=== PATIENT | male | born 1995 | race Caucasian/White ===

== ENCOUNTER 2023-05-10 01:14 | Emergency (ER) | payer BC, SELFPAY ==
[2023-05-10 01:22] VITALS: BP 139/83; PULSE 116; RESP 20; TEMP 37.4; O2SAT 96
--- NOTE | 2023-05-10 02:15 | ED.GENADULT ---
HPI - General Adult General Chief complaint: Skin/Abscess/Foreign Body Stated complaint: cellulitis L leg Time Seen by Provider: 05/10/23 01:18 History of Present Illness HPI narrative: pt has hx of cellulitis to left leg, unknown reason. Pt was at [facility] today, after fair, left leg began to well. Pt, has no pain to leg. pt reports fever/chills/ nausea. No CP, pt does report 2/10 for SOB. PT attempted to elevate leg at home, did not work. Pt reports normally being put on oral antibiotics for this. 27-year-old young man here with significant other with concern of potential infection to his left leg. He has been on his feet today at [facility] and his left leg has started to swell. Is not having pain. Has felt a little chilled and nauseated maybe warm as well. No shortness of breath. Did have a period of elevation of his leg though does not sound as though at heart level. Has needed antibiotics for spontaneous cellulitis apparently in the past. No trauma. Has had recurrences of this in the past. Has had ultrasounds as well with out findings of DVT Related Data Previous Rx's Medication Instructions Recorded cephalexin 500 mg capsule 500 mg PO TID 8 days #24 caps 05/10/23 Allergies Allergy/AdvReac Type Severity Reaction Status Date / Time No Known Drug Allergies Allergy Verified 05/10/23 01:21 Review of Systems Status of ROS: Reports: 6 or more systems reviewed and unremarkable except as noted in History and below [facility] Medical History Cellulitis of left leg ?L03.116 - Cellulitis of left lower limb (ICD-10) Surgical History (Updated 05/10/23 @ 01:47 by Misael Garcias RN) No significant past surgical history 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 Smoking Status: Never smoker Second hand tobacco smoke exposure: No How often do you have a drink containing alcohol: never How often do you have six or more drinks on one occasion: Never AUDIT-C Alcohol total score: 0 Non-prescribed substance use: denies use Exam Narrative: Exam Narrative: Pleasant large man a NAD. Examination of the extremities in question show generally large lower legs. Left a little more so than the left than the right. Mild calor and faint erythema a blotchy over the left lower extremity. Is well perfused. No discrete pain to palpation of the calf or with Homans. Breathing easily. Lungs appear to be clear. Heart is however in an elevated to tachycardic rate in a regular rhythm. Const: Vital Signs, click to edit/add: Vital Signs - 24 hr 05/10/23 01:22 Temperature 99.3 F Pulse Rate [Left P ulse Oximeter] 116 H Respiratory Rate 20 Blood Pressure [Ri ght Upper Arm] 139/83 Pulse Oximetry 96 Oxygen Delivery Me thod Room Air Documenting provider has reviewed patient's vital signs: yes Course Vital Signs Vital signs: Initial Vital Signs Temperature 99.3 F 05/10/23 01:22 Temperature Source Temporal Artery Scan 05/10/23 01:22 Pulse Rate 116 H 05/10/23 01:22 Pulse Rhythm Regular 05/10/23 01:22 Respiratory Rate 20 05/10/23 01:22 Blood Pressure 139/83 05/10/23 01:22 Blood Pressure Mean 101 05/10/23 01:22 Blood Pressure Position Sitting 05/10/23 01:22 Pulse Oximetry 96 05/10/23 01:22 Oxygen Delivery Method Room Air 05/10/23 01:22 Vital Signs Temperature 99.3 F 05/10/23 01:22 Pulse Rate 116 H 05/10/23 01:22 Respiratory Rate 20 05/10/23 01:22 Blood Pressure 139/83 05/10/23 01:22 Pulse Oximetry 96 05/10/23 01:22 Oxygen Delivery Method Room Air 05/10/23 01:22 Temperature 98.5 F 05/10/23 03:57 Pulse Rate 99 05/10/23 03:57 Respiratory Rate 20 05/10/23 03:57 Blood Pressure 135/74 05/10/23 03:57 Pulse Oximetry 96 05/10/23 03:00 Oxygen Delivery Method Room Air 05/10/23 03:00 Medical Decision Making MDM Narrative Medical decision making narrative: Noting vitals do have concern for infection here. Temperature is little bit elevated he is afebrile though. Would treat for cellulitis. Will check labs for further concerned. Given size/stature do have some concerns for chronic lymphedema and clearly this being a recurrent problem. Vascular clinic consult I think would be helpful. White count is elevated. Given g of Rocephin. CRP mildly elevated. I placed Kevin wraps over lower extremity. See patient discharge plan Lab Data Lab results reviewed: Yes I reviewed the patient's lab results Labs: Lab Results 05/10/23 Range/Units 02:18 WBC 13.67 H (4.50-11.00) K/uL RBC 5.38 (4.30-5.90) m/uL Hgb 15.1 (13.5-17.5) gm/dL Hct 45.9 (37.0-53.0) % MCV 85 (80-100) fL MCH 28 (26-34) pg MCHC 33 (32-36) gm/dL RDW Coeff of Barber 12.3 (11.5-15.5) % Plt Count 256 (140-440) K/uL Neut % (Auto) 80.3 H (42.0-72.0) % Lymph % (Auto) 10.5 L (20-44) % [place] % (Auto) 6.9 (0.0-11.0) % Eos % (Auto) 1.8 (0.0-7.0) % Baso % (Auto) 0.2 (0.0-3.0) % Neut # (Auto) 11.00 H (1.7-7.0) K/uL Lymph # (Auto) 1.40 (0.90-2.90) K/uL [place] # (Auto) 0.90 (0.00-0.90) K/UL Eos # (Auto) 0.20 (0.00-0.50) K/uL Baso # (Auto) 0.00 (0.00-0.30) K/uL Abs Immat Gran (auto) 0.00 (0.00-0.30) K/uL Imm/Tot Granulo (auto) 0.3 % Sodium 138 (135-149) mmol/L Potassium 4.2 (3.6-5.1) mmol/L Chloride 103 (96-114) mmol/L Carbon Dioxide 28 (20-32) mmol/L BUN 17 (5-24) mg/dL Creatinine 1.0 (0.5-1.5) mg/dL Estimated GFR 106 ml/min Glucose 105 (60-115) mg/dL Calcium 9.0 (8.4-10.6) mg/dL C-Reactive Protein 1.2 H (0.5-1.0) mg/dL Discharge Plan Discharge Clinical Impression: Cellulitis, Peripheral edema Condition: Stable Additional Instructions: Stay well-hydrated. For now wear this compression word at rest and even when up and about to help mobilize fluid. At rest also get your leg way up as discussed at the level of your heart or above if possible. I do think you should spend the next 2-3 days with your leg up as much as possible and not walking around. I think it might benefit for you to see a vascular clinic about your legs. To coordinate this would likely be helpful to establish primary care locally. Try to get your prior records as well to continue cares. <del>Continue</del> <del>treatment</del> <del>with</del> <del>course</del> <del>of</del> <del>cephalexin</del> <del>from</del> <del>[facility]del> A prescription will be sent in for you for cephalexin. The Rocephin should cover you until you get to the pharmacy. You can start next dosing of antibiotic this mid afternoon. Prescriptions: New cephalexin 500 mg capsule 500 mg PO TID 8 Days Qty: 24 0RF Follow Up/Referrals: Provider,Not a Local [Primary Care Provider] - Stand Alone Forms: MyHealth Info Instructions
[2023-05-10 02:30] LABS: Basophils Percent Auto 0.2 % (0.0-3.0); Eosinophils Percent Auto 1.8 % (0.0-7.0); Hematocrit 45.9 % (37.0-53.0); Hemoglobin* 15.1 gm/dL (13.5-17.5); Immature Granulocytes Pct Auto 0.3 %; Lymphocytes Percent Auto 10.5 % (20-44); Mean Corpuscular HGB Conc 33 gm/dL (32-36); Mean Corpuscular Hemoglobin 28 pg (26-34); Mean Corpuscular Volume 85 fL (80-100); Monocytes Percent Auto 6.9 % (0.0-11.0); Neutrophils Percent Auto 80.3 % (42.0-72.0); Platelet Count* 256 K/uL (140-440); RDW Coefficient of Variation % 12.3 % (11.5-15.5); Red Blood Count 5.38 m/uL (4.30-5.90); White Blood Count* 13.67 K/uL (4.50-11.00)
[2023-05-10 02:34] LABS: Slide Review Reflex No
[2023-05-10 02:38] LABS: Chloride* 103 mmol/L (96-114); Potassium* 4.2 mmol/L (3.6-5.1); Sodium* 138 mmol/L (135-149)
[2023-05-10 02:41] LABS: Estimated Glomerular Filt Rate 106 ml/min
[2023-05-10 02:42] LABS: Blood Urea Nitrogen* 17 mg/dL (5-24); Carbon Dioxide* 28 mmol/L (20-32); Glucose* 105 mg/dL (60-115)
[2023-05-10 02:45] LABS: C Reactive Protein* 1.2 mg/dL (0.5-1.0)
[2023-05-10 03:00] VITALS: BP 135/74; PULSE 99; RESP 20; TEMP 36.9; O2SAT 96
[2023-05-10] MEDS: cefTRIAXone 1 GM VIAL IM (03:46)
[2023-05-10] MEDS: LIDOCAINE 1% 5 ml (pf) 5 ML VIAL 2.1 ML IM (03:46)
[2023-05-10 03:57] VITALS: BP 135/74; PULSE 99; RESP 20; TEMP 36.9
== END 2023-05-10 03:57 | disposition home or self-care (01) ==
PROVIDERS: Emergency Provider Family Medicine
DX: L03.116 Cellulitis of left lower limb (principal); R60.9 Edema, unspecified
CPT/HCPCS: 36415; 80048; 85025; 86140; 96372; 99284; J0696

== ENCOUNTER 2023-06-03 20:05 | Emergency (ER) | payer BC, SELFPAY ==
[2023-06-03 20:23] VITALS: BP 152/84; PULSE 99; RESP 18; TEMP 36.7; O2SAT 99; BMI 46.2
--- NOTE | 2023-06-03 20:32 | ED.SKABFB ---
HPI - Skin/Abscess/Foreign Bdy General Time Seen by Provider: 20:32 Date Seen: 06/03/23 Chief complaint: Skin/Abscess/Foreign Body Stated complaint: Pain in leg Time Seen by Provider: 06/03/23 20:32 Source: patient and RN notes reviewed Mode of arrival: ambulatory Limitations: no limitations History of Present Illness HPI narrative: This 27-year-old male is coming in with left lower leg swelling and redness, increased pain. He noted Thursday night he started having fever and chills. His girlfriend gave him vitamin-C a couple times. When he woke up Thursday the fever was gone, just had a mild headache. Notes he will often feel like this before his leg will be infected with a cellulitis. He has had recurrent cellulitis in this leg. Was recently just treated here and seen on May 10, no reviewed. He did complete the Keflex. He has no history of MRSA. He thinks that the leg may be started to be symptomatic yesterday but really noted it today. When he got home today and took his boot off, had significant indentation in his left lower extremity wear the boot was resting. He has no chest pain or shortness of breath. He does not have a primary doctor. He and I reviewed that he really needs to see a specialist for this. He is giving me a history of recurrent cellulitis and swelling of this extremity, have reviewed with him that there can be chronic changes in he is far too young to ignore this. I highly advise that he be referred to specialty care and lymphedema clinic. He thinks his legs been ultrasounded for underlying DVT but maybe last time a few months ago, was not here. Related Data Home Medications Medication Instructions Recorded Confirmed No Known Home Medications 06/03/23 06/03/23 Allergies Allergy/AdvReac Type Severity Reaction Status Date / Time No Known Drug Allergies Allergy Verified 06/03/23 20:25 Review of Systems Narrative: As per HPI. PFSH PFSH Medical History Cellulitis of left leg ?L03.116 - Cellulitis of left lower limb (ICD-10) Surgical History No significant past surgical history 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 Smoking Status: Never smoker Second hand tobacco smoke exposure: No How often do you have a drink containing alcohol: never How often do you have six or more drinks on one occasion: Never AUDIT-C Alcohol total score: 0 Non-prescribed substance use: denies use Exam Const: Vital Signs, click to edit/add: Vital Signs - 24 hr 06/03/23 20:23 Temperature 98.1 F Pulse Rate [Right Pulse Oximeter] 99 Respiratory Rate 18 Blood Pressure [Ri ght Upper Arm] 152/84 H Pulse Oximetry 99 Oxygen Delivery Me thod Room Air This is a 27-year-old male that is alert, interactive, no apparent distress, ambulatory in the ED of his own accord. Very pleasant, normal speech. Obese 27-year-old male. Lungs are clear with good air entry, no wheezing or crackles. CV regular rate and rhythm, no murmur, normal S1 and S2. Abdomen is soft, nontender. His left lower extremity looks about 30% larger than his right. He has some thickened skin that is noted on this left lower extremity and also erythema that seems to be confluency around the ankle and the lower portion of the leg, erythema travels up posteriorly in the calf area. Also note an area of erythema that is above the knee medially on the thigh. I cannot say that he has a Homans but he has quite large extremities baseline, left is certainly much more swollen than the right. He states this happens quickly to him, feels like at baseline they are both closer to same size. Documenting provider has reviewed patient's vital signs: yes Course Course ED Course: Reviewed with patient that I really feel strongly that we should ultrasound this left lower extremity insure that there was no underlying DVT. If this is negative, plan is to discharge him with oral doxycycline and close outpatient follow-up. I have stressed to him that this needs to happen he needs to be referred to specialty care/lymphedema clinic. Reevaluation(s) Time of Reevaluation #1: 21:34 Reevaluation #1: Reviewed negative report for DVT by earth science laboratory technician with patient. Will plan to discharge to home on doxycycline 100mg bid for 10 days. Vital Signs Vital signs: Initial Vital Signs Temperature 98.1 F 06/03/23 20:23 Temperature Source Temporal Artery Scan 06/03/23 20:23 Pulse Rate 99 06/03/23 20:23 Respiratory Rate 18 06/03/23 20:23 Blood Pressure 152/84 H 06/03/23 20:23 Blood Pressure Mean 106 H 06/03/23 20:23 Blood Pressure Position Sitting 06/03/23 20:23 Pulse Oximetry 99 06/03/23 20:23 Oxygen Delivery Method Room Air 06/03/23 20:23 Vital Signs Temperature 98.1 F 06/03/23 20:23 Pulse Rate 99 06/03/23 20:23 Respiratory Rate 18 06/03/23 20:23 Blood Pressure 152/84 H 06/03/23 20:23 Pulse Oximetry 99 06/03/23 20:23 Oxygen Delivery Method Room Air 06/03/23 20:23 Temperature 98.1 F 06/03/23 20:23 Pulse Rate 99 06/03/23 20:23 Respiratory Rate 18 06/03/23 20:23 Blood Pressure 152/84 H 06/03/23 20:23 Pulse Oximetry 99 06/03/23 20:23 Oxygen Delivery Method Room Air 06/03/23 20:23 Critical Care Time Critical Care Time Critical Care Time: No Discharge Plan Discharge Clinical Impression: Cellulitis Patient Disposition: Home, Self-Care Condition: Stable Instructions: Cellulitis (ED), Leg Edema (ED) Additional Instructions: Start doxycycline and take as prescribed. You absolutely need to get scheduled for recheck in clinic within the next 3-5 days, sooner if issues. You really need to be referred to a lymphedema clinic given you have chronic recurrent infection in this leg. Your far too young and this could become very problematic for you. You need to get control of the swelling of this leg and have further evaluation done. Recommend elevating and Kevin wrapping this leg as much as you are able to until the infection is improving. Activity Level: Activity as Tolerated Prescriptions: No Action No Known Home Medications Follow Up/Referrals: Provider,Not a Local [Primary Care Provider] - Stand Alone Forms: MyHealth Info Instructions
--- NOTE | 2023-06-03 20:39 | CRLHL7_ITS ---
For Patients: As a result of the Century Cures Act, medical imaging exams and procedure reports are released immediately into your electronic medical record. You may view this report before your referring provider. If you have questions, please contact your health care provider. HISTORY: Swelling, redness and pain. TECHNIQUE: Ultrasound of the left lower extremity deep veins using munguia-scale, color Doppler, and spectral Doppler. COMPARISON: None. FINDINGS: Left: Common femoral, femoral, and popliteal veins are patent and compressible with normal response to augmentation. Deep femoral vein is patent and compressible. Posterior tibial and peroneal veins are patent and compressible with normal response to augmentation. Greater saphenous vein is patent and compressible at the junction with the femoral vein. - Right: Common femoral vein is patent and compressible with normal response to augmentation. IMPRESSION: No left lower extremity DVT. Dictated by Aura Tanner MD @ 06/03/2023 10:02:40 PM (Electronically Signed)
[2023-06-03 21:57] VITALS: BP 135/74; PULSE 86; RESP 18; TEMP 36.7; O2SAT 99
[2023-06-03] MEDS: DOXYCYCLINE HYCLATE 100 MG PO (21:57)
[2023-06-03 21:58] VITALS: BP 135/74; PULSE 86; RESP 18; TEMP 36.7
== END 2023-06-03 21:59 | disposition home or self-care (01) ==
PROVIDERS: Emergency Provider Family Medicine
DX: L03.116 Cellulitis of left lower limb (principal)
CPT/HCPCS: 93971; 99283; A9270

== ENCOUNTER 2023-12-20 14:52 | Emergency (ER) | payer BC, SELFPAY ==
[2023-12-20 15:00] VITALS: BP 150/88; PULSE 81; RESP 32; TEMP 36.1; O2SAT 94; BMI 47.5
--- NOTE | 2023-12-20 15:44 | ED_ITS ---
HPI - General Adult General Chief complaint: Skin/Abscess/Foreign Body Stated complaint: Infection L leg Time Seen by Provider: 12/20/23 14:58 History of Present Illness HPI narrative: araceli is a very pleasant 28-year-old male who has recurrent cellulitis in his left leg. He has had ultrasounds a couple of times, he has had 7 or 8 recurrences of cellulitic change in his left leg. His BMI is elevated. 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 He notices redness and he has felt a little chilled. He has benefited from doxycycline in the past. It has been recommended he see a chronic lymphedema specialist given he gets some increased swelling in his leg. He has had negative Dopplers he has never had a clot in his leg. He has no chest pain or shortness of breath today. Related Data Previous Rx's Medication Instructions Recorded doxycycline hyclate 100 mg capsule 100 mg PO BID #20 caps 12/20/23 Allergies Allergy/AdvReac Type Severity Reaction Status Date / Time No Known Drug Allergies Allergy Verified 06/03/23 20:25 Review of Systems Status of ROS: Reports: 6 or more systems reviewed and unremarkable except as noted in History and below [facility] Medical History Cellulitis of left leg ?L03.116 - Cellulitis of left lower limb (ICD-10) Surgical History No significant past surgical history 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 Smoking Status: Never smoker Do you use any of these nicotine containing products: Vaping Products Second hand tobacco smoke exposure: No How often do you have a drink containing alcohol: never How often do you have six or more drinks on one occasion: Never AUDIT-C Alcohol total score: 0 Non-prescribed substance use: denies use service: No Exam Narrative: Exam Narrative: Objective: Patient's vital signs look largely unremarkable he is afebrile His left leg shows calf swelling with redness and warmth some firmness to the skin, is got a little bit a cellulitic streaking in his medial thigh as well which she reports is fairly normal for him to have he has a negative Homans sign no palpable cords in the back of his leg although his leg is both his legs are large due to his general body size. Does not appear to have significant edema. Neurologic is nonfocal. Const: Vital Signs, click to edit/add: Vital Signs - 24 hr 12/20/23 15:00 Temperature 96.9 F L Pulse Rate [Pulse Oximeter] 81 Respiratory Rate 32 H Blood Pressure [Ri ght Upper Arm] 150/88 H Pulse Oximetry 94 Oxygen Delivery Me thod Room Air Course Vital Signs Vital signs: Initial Vital Signs Temperature 96.9 F L 12/20/23 15:00 Temperature Source Temporal Artery Scan 12/20/23 15:00 Pulse Rate 81 12/20/23 15:00 Pulse Rhythm Regular 12/20/23 15:00 Respiratory Rate 32 H 12/20/23 15:00 Blood Pressure 150/88 H 12/20/23 15:00 Blood Pressure Mean 108 H 12/20/23 15:00 Blood Pressure Position Supine 12/20/23 15:00 Pulse Oximetry 94 12/20/23 15:00 Oxygen Delivery Method Room Air 12/20/23 15:00 Vital Signs Temperature 96.9 F L 12/20/23 15:00 Pulse Rate 81 12/20/23 15:00 Respiratory Rate 32 H 12/20/23 15:00 Blood Pressure 150/88 H 12/20/23 15:00 Pulse Oximetry 94 12/20/23 15:00 Oxygen Delivery Method Room Air 12/20/23 15:00 Temperature 96.9 F L 12/20/23 15:00 Pulse Rate 81 12/20/23 15:00 Respiratory Rate 32 H 12/20/23 15:00 Blood Pressure 150/88 H 12/20/23 15:00 Pulse Oximetry 94 12/20/23 15:00 Oxygen Delivery Method Room Air 12/20/23 15:00 Medical Decision Making MDM Narrative Medical decision making narrative: 28-year-old male with recurrent left leg cellulitis, probably some stasis ch anges, possibly mild lymphedema. He has always been negative for DVT scanning and after discussion he wishes not to perform ultrasound again given that is always been negative. I would think that is a reasonable decision and with mutual decision making we elected to forego this test. I do think he needs an injection of Rocephin will cover the him as well with doxycycline 100 b.i.d. times 10 days. Will give him names for primary care doctors that he can talk about vascular assessment as well as possibly weight reduction options. He was interested in this. Would also write him a note for off work for a couple days he can elevate and heat pack is leg. return to the ED problems or concerns Discharge Plan Discharge Clinical Impression: Cellulitis Patient Disposition: Home w/ Parent or Adult Condition: Stable Additional Instructions: Elevation, off work for the next 3 days, warm pack as needed, return if worsening or changes. We will start the doxycycline 100 mg b.i.d.. Today. No written for off work, elevate the leg above the level of your heart. Please give the number to call for the family practice department at [place], either Dr. Her Han or Nu wen Activity Level: Light activity Activity Detail: Off work times next 3 days Discharge Diet: Regular Prescriptions: New doxycycline hyclate 100 mg capsule 100 mg PO BID Qty: 20 0RF Follow Up/Referrals: Provider,Not a Local [Primary Care Provider] - Stand Alone Forms: [employer] Info Instructions
[2023-12-20] MEDS: cefTRIAXone 1 GM VIAL IM (15:55)
[2023-12-20] MEDS: LIDOCAINE 1% 5 ml (pf) 5 ML VIAL 2.1 ML IM (15:56)
== END 2023-12-20 16:09 | disposition home or self-care (01) ==
LOC: ED 15:34
PROVIDERS: Emergency Provider Family Medicine
DX: L03.116 Cellulitis of left lower limb (principal)
CPT/HCPCS: 96372; 99283; J0696

== ENCOUNTER 2024-04-01 05:17 | Inpatient (IN) | payer BC, SELFPAY ==
[2024-04-01] VITALS (17 sets, daily range): BP systolic 132–146; BP diastolic 62–92; PULSE 84–132; RESP 16–32; TEMP 37.1–39.2; O2SAT 93–99; BMI 42.2; BMI 53.7
[2024-04-01] MEDS: PIPERACILLIN/TAZOBACTAM 3.375 GM in 0.9 % SODIUM CHLORIDE Mini-bag 100 ML IVPB ×3 (06:06→18:48)
[2024-04-01] MEDS: 0.9 % SODIUM CHLORIDE 1000 ml 1,000 ML IV ×4 (06:06→11:52)
[2024-04-01] MEDS: ACETAMINOPHEN 500 MG TABLET 1000 MG PO (06:06)
[2024-04-01 06:19] LABS: Lactate* 1.3 mmol/L (0.5-1.9)
[2024-04-01 06:22] LABS: Basophils Percent Auto 0.1 % (0.0-3.0); Hematocrit 41.7 % (37.0-53.0); Hemoglobin* 14.1 gm/dL (13.5-17.5); Immature Granulocytes Pct Auto 1.8 %; Lymphocytes Percent Auto 8.3 % (20-44); Mean Corpuscular HGB Conc 34 gm/dL (32-36); Mean Corpuscular Hemoglobin 28 pg (26-34); Mean Corpuscular Volume 83 fL (80-100); Monocytes Percent Auto 4.1 % (0.0-11.0); Neutrophils Percent Auto 85.7 % (42.0-72.0); Platelet Count* 181 K/uL (140-440); RDW Coefficient of Variation % 13.2 % (11.5-15.5); Red Blood Count 5.04 m/uL (4.30-5.90); White Blood Count* 16.57 K/uL (4.50-11.00)
--- NOTE | 2024-04-01 06:30 | CRLHL7_ITS ---
For Patients: As a result of the Century Cures Act, medical imaging exams and procedure reports are released immediately into your electronic medical record. You may view this report before your referring provider. If you have questions, please contact your health care provider. INDICATION: Left lower extremity swelling TECHNIQUE: Ultrasound venous duplex lower left extremity. Compression venous exam was performed using munguia-scale, color Doppler, and spectral Doppler analysis. COMPARISON: None. FINDINGS: Sonographic imaging demonstrates the left common femoral, deep femoral, superficial femoral, popliteal, posterior tibial and greater saphenous and the contralateral right common femoral veins to be fully compressible with normal color Doppler blood flow. Left peroneal veins are not well seen. IMPRESSION: No evidence of deep venous thrombosis left lower extremity. Dictated by Aquiles Hope MD @ 04/01/2024 7:13:40 AM (Electronically Signed)
--- NOTE | 2024-04-01 06:32 | ED_ITS ---
HPI - General Adult General Chief complaint: Skin/Abscess/Foreign Body Stated complaint: cellulitis - left leg Time Seen by Provider: 04/01/24 05:25 History of Present Illness HPI narrative: Patient is a 28-year-old gentleman who over last several days of progressive pain and swelling in the left leg. He has had recurrent cellulitis of his left leg in the past. He comes in tachycardic with a fever of 101.4. He has had no nausea no vomiting no shortness of breath no chest pain. He has had no sores on his legs but does have a chronic dermatitis of the left lower extremity. The area of erythema extends to the mid calf with a secondary in the medial thigh. Again no skin breakdown no drainage no discharge. No findings on the right leg. No history of trauma. Related Data Home Medications ?Medication ?Instructions ?Recorded ?Confirmed No Known Home Medications 04/01/24 04/01/24 Allergies Allergy/AdvReac Type Severity Reaction Status Date / Time No Known Drug Allergies Allergy Verified 01/15/24 10:53 Review of Systems Status of ROS: Reports: 10 or more systems reviewed and unremarkable except as noted in History and below [facility] Medical History (Updated 04/02/24 @ 14:32 by Donna Post PA-C) Kidney disease ?N28.9 - Disorder of kidney and ureter, unspecified (ICD-10) Primary hypertension ?I10 - Essential (primary) hypertension (ICD-10) Morbid obesity ?E66.01 - Morbid (severe) obesity due to excess calories (ICD-10) Lymphedema ?I89.0 - Lymphedema, not elsewhere classified (ICD-10) Cellulitis of left leg ?L03.116 - Cellulitis of left lower limb (ICD-10) Surgical History No significant past surgical history 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: , 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, 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, 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, 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 What is your current living situation?: I presently have a place to live Problems where you live: no known problems Problems where you live details: none In the past 12 months, utilities in danger of being shut off: no In past 12 months, lack of transportation kept you from medical appts, meetings, work, or getting things needed for daily living: no In the past 12 mos, have been you worried that your food would run out before you had money to buy more?: never true In the past 12 mos, the food you bought just didn't last and you didn't have money to buy more?: never true Highest level of school completed/degree received: high school graduate Smoking Status: Former smoker Second hand tobacco smoke exposure: No How often do you have a drink containing alcohol: never How often do you have six or more drinks on one occasion: Never AUDIT-C Alcohol total score: 0 Non-prescribed substance use: denies use Caffeine: No How often does anyone, including family, friends and others, physically hurt you : never How often does anyone, including family, friends and others, insult or talk down to you: never How often does anyone, including family, friends and others, threaten you with harm: never How often does anyone, including family, friends and others, scream or curse at you: never Little interest or pleasure in doing things: not at all Feeling down, depressed, or hopeless: not at all service: No Exam Narrative: Exam Narrative: EXAM GENERAL: Patient appears comfortable and well. Obese. EYES: No scleral icterus. LYMPH: No supraclavicular or cervical lymphadenopathy. SKIN: Visible skin seen during exam normal or with benign process only. EXT: Arm left lower extremity shows chronic lymphedema with significant erythema as described above to the mid calf as well as 2nd area of induration and redness in the left medial thigh. HEART: Regular rate and rhythm with no murmurs, rubs, or gallops. LUNGS: Clear to auscultation bilaterally with no crackles or wheezes. ABD: Soft, non tender, non distended. PSYCH: Good eye contact, speech is not pressured. Const: Vital Signs, click to edit/add: Vital Signs - 24 hr 04/01/24 05:21 Temperature 101.4 F H Pulse Rate [Pulse Oximeter] 132 H Respiratory Rate 18 Blood Pressure [Ri ght Upper Arm] 137/62 Pulse Oximetry 96 Oxygen Delivery Me thod Room Air Course Course ED Course: Patient seen and examined. I did [place] the area of erythema. Procalcitonin blood cultures lactate CRP sed rate CBC electrolytes pending. I did start him on vancomycin and Zosyn as he does appear to have called occasion for sepsis syndrome. I will start him on aggressive hydration. Ultrasound of the left lower extremity pending. Tylenol 1000 mg given. Vital Signs Vital signs: Initial Vital Signs Temperature 101.4 F H 04/01/24 05:21 Temperature Source Temporal Artery Scan 04/01/24 05:21 Pulse Rate 132 H 04/01/24 05:21 Respiratory Rate 18 04/01/24 05:21 Blood Pressure 137/62 04/01/24 05:21 Blood Pressure Mean 87 04/01/24 05:21 Blood Pressure Position Supine 04/01/24 05:21 Pulse Oximetry 96 04/01/24 05:21 Oxygen Delivery Method Room Air 04/01/24 05:21 Vital Signs Temperature 101.4 F H 04/01/24 05:21 Pulse Rate 132 H 04/01/24 05:21 Respiratory Rate 18 04/01/24 05:21 Blood Pressure 137/62 04/01/24 05:21 Pulse Oximetry 96 04/01/24 05:21 Oxygen Delivery Method Room Air 04/01/24 05:21 Temperature 99.3 F 04/02/24 15:02 Pulse Rate 92 04/02/24 15:02 Respiratory Rate 20 04/02/24 15:02 Blood Pressure 154/86 H 04/02/24 15:02 Pulse Oximetry 95 04/02/24 15:02 Oxygen Delivery Method Room Air 04/02/24 15:02 Medications Administered Medications: Generic Name Dose Route Start Last Admin Trade Name Freq PRN Reason Stop Dose Admin Acetaminophen 650 mg 04/01/24 09:09 04/01/24 11:25 Acetaminophen 325 Mg Tablet PO 650 mg Q6H PRN Administration Enoxaparin Sodium 30 mg 04/01/24 21:00 04/01/24 21:34 Enoxaparin 30 Mg/0.3ml Inj SUBCUT 30 mg Q24H JAZMIN Administration Piperacillin Sod/Tazobactam 100 mls @ 200 mls/hr 04/01/24 13:00 04/02/24 19:16 Sod 3.375 gm/ Sodium Chloride IVPB Infused Q6H JAZMIN Infusion Vancomycin HCl 1,500 mg/ 515 mls @ 343.333 mls/hr 04/01/24 19:00 04/02/24 19:15 Sodium Chloride IVPB 343.3 mls/hr Q12H JAZMIN Administration Ibuprofen 600 mg 04/01/24 11:38 04/01/24 11:52 Ibuprofen 600 Mg Tablet PO 600 mg Q6H PRN Administration Fever Sodium Chloride 5 ml 04/01/24 21:00 04/02/24 08:31 Sodium Chloride 0.9 % (Flush) 10 Ml Syringe IVF Not Given BID JAZMIN Discontinued Medications Generic Name Dose Route Start Last Admin Trade Name Freq PRN Reason Stop Dose Admin Acetaminophen 1,000 mg 04/01/24 05:30 04/01/24 06:06 Acetaminophen 500 Mg Tablet PO 04/01/24 05:31 1,000 mg ONCE ONE Administration Vancomycin HCl 1,500 mg/ 515 mls @ 257.5 mls/hr 04/01/24 05:30 04/01/24 09:47 Sodium Chloride IVPB Infused Q12H JAZMIN Infusion Protocol Piperacillin Sod/Tazobactam 100 mls @ 200 mls/hr 04/01/24 05:30 04/01/24 07:07 Sod 3.375 gm/ Sodium Chloride IVPB 04/01/24 05:31 Infused ONCE ONE Infusion Sodium Chloride 1,000 mls @ 1,000 mls/hr 04/01/24 05:32 04/01/24 08:36 0.9 % Sodium Chloride 1000 Ml IV 04/01/24 06:31 Infused .Q1H JAZMIN Infusion Sodium Chloride 1,000 mls @ 1,000 mls/hr 04/01/24 07:19 04/01/24 08:36 0.9 % Sodium Chloride 1000 Ml IV 04/01/24 08:18 Infused .Q1H JAZMIN Infusion Sodium Chloride 1,000 mls @ 1,000 mls/hr 04/01/24 09:08 04/01/24 11:18 0.9 % Sodium Chloride 1000 Ml IV 04/01/24 10:07 Infused .Q1H JAZMIN Infusion Sodium Chloride 1,000 mls @ 125 mls/hr 04/01/24 09:08 04/02/24 14:55 0.9 % Sodium Chloride 1000 Ml IV 0 mls/hr .Q8H JAZMIN Infusion Sodium Chloride 1,000 mls @ 1,000 mls/hr 04/01/24 11:48 04/01/24 13:27 0.9 % Sodium Chloride 1000 Ml IV 04/01/24 12:47 Infused .Q1H JAZMIN Infusion Potassium Chloride 40 meq 04/02/24 08:20 04/02/24 18:27 Potassium Chloride 10 Meq Capsule Er PO 04/02/24 18:01 40 meq BIDWM JAZMIN Administration Potassium Chloride 40 meq 04/02/24 14:29 04/02/24 14:53 Potassium Chloride 10 Meq Capsule Er PO 04/02/24 14:30 40 meq ONCE ONE Administration Sodium Chloride 5 ml 04/01/24 09:00 04/02/24 08:31 Sodium Chloride 0.9 % (Flush) 10 Ml Syringe IVF Not Given BID [facility] Medical Decision Making Lab Data Labs: Lab Results 04/01/24 Range/Units 06:00 WBC 16.57 H (4.50-11.00) K/uL RBC 5.04 (4.30-5.90) m/uL Hgb 14.1 (13.5-17.5) gm/dL Hct 41.7 (37.0-53.0) % MCV 83 (80-100) fL MCH 28 (26-34) pg MCHC 34 (32-36) gm/dL RDW Coeff of Barber 13.2 (11.5-15.5) % Plt Count 181 (140-440) K/uL Neut % (Auto) 85.7 H (42.0-72.0) % Lymph % (Auto) 8.3 L (20-44) % Charles % (Auto) 4.1 (0.0-11.0) % Eos % (Auto) 0.0 (0.0-7.0) % Baso % (Auto) 0.1 (0.0-3.0) % Neut # (Auto) 14.20 H (1.7-7.0) K/uL Lymph # (Auto) 1.40 (0.90-2.90) K/uL Charles # (Auto) 0.70 (0.00-0.90) K/UL Eos # (Auto) 0.00 (0.00-0.50) K/uL Baso # (Auto) 0.00 (0.00-0.30) K/uL Abs Immat Gran (auto) 0.30 (0.00-0.30) K/uL Imm/Tot Granulo (auto) 1.8 % ESR 29 H (2-15) mm/hr D-Dimer Quant (PE/DVT) 3.98 H (0.00-0.50) ug/ml Sodium 133 L (135-149) mmol/L Potassium 3.3 L (3.6-5.1) mmol/L Chloride 98 (96-114) mmol/L Carbon Dioxide 26 (20-32) mmol/L Anion Gap 9 (7-15) mEq/L BUN 16 (5-24) mg/dL Creatinine 1.5 (0.5-1.5) mg/dL Estimated Creat Clear 83.60 Estimated GFR 65 ml/min Glucose 115 (60-115) mg/dL Lactate 1.3 (0.5-1.9) mmol/L Calcium 8.0 L (8.4-10.6) mg/dL Total Bilirubin 3.0 H (0.1-1.5) mg/dL AST 85 H (12-35) U/L ALT 116 H (4-50) U/L Alkaline Phosphatase 57 (40-150) U/L C-Reactive Protein 23.5 H (0.5-1.0) mg/dL Total Protein 7.8 (6.0-8.3) g/dL Albumin 4.3 (3.3-5.0) g/dL Procalcitonin 1.61 H (<0.50) ng/mL
[2024-04-01 06:35] LABS: Chloride* 98 mmol/L (96-114); Sodium* 133 mmol/L (135-149)
[2024-04-01 06:36] LABS: Albumin* 4.3 g/dL (3.3-5.0); Potassium* 3.3 mmol/L (3.6-5.1)
[2024-04-01 06:39] LABS: Alanine Aminotransferase* 116 U/L (4-50); Alkaline Phosphatase* 57 U/L (40-150); Anion Gap 9 mEq/L (7-15); Aspartate Amino Transferase* 85 U/L (12-35); Blood Urea Nitrogen* 16 mg/dL (5-24); Carbon Dioxide* 26 mmol/L (20-32); Creatinine* 1.5 mg/dL (0.5-1.5); Estimated Glomerular Filt Rate 65 ml/min; Glucose* 115 mg/dL (60-115); Total Protein* 7.8 g/dL (6.0-8.3)
[2024-04-01 06:47] LABS: D Dimer Quantitative* 3.98 ug/ml (0.00-0.50); Slide Review Reflex No
[2024-04-01 06:56] LABS: Procalcitonin* 1.61 ng/mL (<0.50)
[2024-04-01 07:01] LABS: C Reactive Protein* 23.5 mg/dL (0.5-1.0)
[2024-04-01 07:45] LABS: Erythrocyte SedimentationRate* 29 mm/hr (2-15)
--- NOTE | 2024-04-01 09:13 | PM.IMHP1 ---
Hospitalist- H&P: HPI History of Present Illness Date Seen: 04/01/24 Chief complaint: cellulitis - left leg Narrative: Andrea Desai SR is a 28 year old male with no report of significant past medical history other than previous occurrence of left lower extremity cellulitis. Not currently on prescription medications. He is admitted to the medical floor with sepsis in setting of suspected LLE cellulitis. Patient reports 2 day history of left leg swelling, redness, discomfort. Suspects he may have scratched it. Denies trauma or injury. Does have some chronic skin changes there. Has had a similar episode in the past, according to EMR September 2022. Today, presented to the ED with a fever of 101.4? and has been tachycardic. Denies headache or dizziness. Denies chest pain or shortness of breath. No cough. Denies nausea, vomiting. Denies change in stools or urination. Nonsmoker, though according to history may have been a former smoker. Denies alcohol use. In the ED, patient received 2 L normal saline and was started on vancomycin and Zosyn. Review of Systems Narrative: REVIEW OF SYSTEMS: Complete review of systems performed and negative unless otherwise stated in HPI or below. 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, 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 What is your current living situation?: I presently have a place to live Problems where you live: no known problems Problems where you live details: none In the past 12 months, utilities in danger of being shut off: no In past 12 months, lack of transportation kept you from medical appts, meetings, work, or getting things needed for daily living: no In the past 12 mos, have been you worried that your food would run out before you had money to buy more?: never true In the past 12 mos, the food you bought just didn't last and you didn't have money to buy more?: never true Highest level of school completed/degree received: high school graduate Smoking Status: Former smoker Second hand tobacco smoke exposure: No How often do you have a drink containing alcohol: never How often do you have six or more drinks on one occasion: Never AUDIT-C Alcohol total score: 0 Non-prescribed substance use: denies use Caffeine: No How often does anyone, including family, friends and others, physically hurt you: never How often does anyone, including family, friends and others, insult or talk down to you: never How often does anyone, including family, friends and others, threaten you with harm: never How often does anyone, including family, friends and others, scream or curse at you: never Little interest or pleasure in doing things: not at all Feeling down, depressed, or hopeless: not at all service: No Meds Home Medications and Allergies Home Medications ?Medication ?Instructions ?Recorded ?Confirmed ?Type No Known Home Medications 04/01/24 04/01/24 History Allergies Allergy/AdvReac Type Severity Reaction Status Date / Time No Known Drug Allergies Allergy Verified 01/15/24 10:53 Exam Narrative: Exam Narrative: PHYSICAL EXAM General: Pleasant, conversant, appears in no acute distress HEENT: Normocephalic, atraumatic, sclera white, EOMI, oral mucosa moist Cardiovascular: Tachycardic Pulmonary: CTA bilaterally without rhonchi, rales, expiratory wheezes. Tachypnea documented, patient does not appear dyspneic Abdominal: Soft, nondistended, NTTP, no guarding Neurological: Alert, answering questions appropriately, cranial nerves intact, no focal findings Extremities: LLE with erythema, outlined, to thigh. Warm to touch. Edematous changes of lower leg. Scaly. No open wounds. RLE thick but otherwise without acute findings. Skin: Warm, dry. Const: Vital Signs, click to edit/add: Vital Signs - 24 hr 07/12/24 05:21 04/01/24 07:37 04/01/24 08:25 Temperature 101.4 F H 100.1 F H 101.3 F H Pulse Rate [Pulse Oximeter] 132 H 120 H 125 H Respiratory Rate 18 18 32 H Blood Pressure [Le ft Arm] 132/82 Blood Pressure [Ri ght Upper Arm] 137/62 141/72 H Pulse Oximetry 96 95 93 Oxygen Delivery Me thod Room Air Room Air Room Air 04/01/24 08:36 04/01/24 08:38 Temperature 101.3 F H Pulse Rate [Pulse Oximeter] Respiratory Rate 32 H Blood Pressure [Le ft Arm] Blood Pressure [Ri ght Upper Arm] Pulse Oximetry 93 Oxygen Delivery Me thod Room Air Hospitalist - H&P: Result Labs Labs: Short CBC 04/01/24 Range/Units 06:00 WBC 16.57 H (4.50-11.00) K/uL Hgb 14.1 (13.5-17.5) gm/dL Hct 41.7 (37.0-53.0) % Plt Count 181 (140-440) K/uL BMP 04/01/24 06:00 Sodium 133 L Potassium 3.3 L Chloride 98 Carbon Dioxide 26 BUN 16 Creatinine 1.5 Glucose 115 Calcium 8.0 L Liver Function 04/01/24 Range/Units 06:00 Total Bilirubin 3.0 H (0.1-1.5) mg/dL AST 85 H (12-35) U/L ALT 116 H (4-50) U/L Alkaline Phosphatase 57 (40-150) U/L Albumin 4.3 (3.3-5.0) g/dL Imaging Lower extremity ultrasound: Attestation: I have reviewed the pertinent imaging results. Radiologist's impression: No evidence of deep venous thrombosis left lower extremity US abdomen limited: Attestation: I have reviewed the pertinent imaging results. Radiologist's impression: Liver: Heterogeneous/echogenic hepatic parenchyma. No suspicious masses. No intrahepatic biliary dilatation. Gallbladder: No stones or sludge. Normal wall thickness. No pericholecystic fluid. Common bile duct: Obscured. Pancreas: Obscured. Right kidney: Normal in size. Normal echotexture and cortex. No suspicious masses, stones, or hydronephrosis. Vasculature: Proximal abdominal aorta is unremarkable. IMPRESSION: Heterogeneous/echogenic hepatic parenchyma suggestive of chronic hepatocellular disease, including hepatic steatosis. No cholelithiasis or cholecystitis. Common bile duct is obscured. No intrahepatic ductal dilation. Assessment and Plan Assessment and plan (1) Sepsis: Problem comment: Suspected left lower extremity cellulitis (no open wounds to culture) Max temp 102.6? thus far, tachycardia, tachypnea. No hypoxia WBC 16.57 with left shift, procal 1.61, lactate 1.3, elevated sed rate, CRP BC x2 pending, UA ordered, MRSA pending Continue vancomycin and Zosyn as initiated in the ED Tylenol or ibuprofen as needed for fever (elevated LFTs, creatinine up from baseline - monitor) He has had a total of 4 L NS bolus followed by maintenance fluids Telemetry, vitals Could consider CT chest/abd/pelvis if no improvement in vitals following sepsis management, rule out PE, infectious process Status: Acute (2) Cellulitis of left leg: Problem comment: Continue vancomycin and Zosyn Lower extremity compression wraps, elevate Status: Acute (3) Lymphedema: Problem comment: Acute on chronic recurrent per patient. Appears to have chronic skin/rash changes Lower extremity compression wraps Status: Acute (4) Primary hypertension: Problem comment: No previous diagnosis of this. Blood pressure elevated secondary to sepsis. Monitor. Status: Acute (5) Hypokalemia: Problem comment: Potassium 3.3, supplement with oral doses, monitor Status: Acute (6) Abnormal LFTs: Problem comment: Likely chronic, acutely worsened in setting of sepsis Total bili 3.0, AST 85, ALT 116. 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 This includes time spent for the visit reviewing the chart, time spent during the visit, time spent after the visit and documentation and planning in coordination of care.
[2024-04-01] MEDS: SODIUM CHLORIDE 0.9 % (FLUSH) 10 ML SYRINGE 5 ML IVF ×2 (09:54→21:35)
--- NOTE | 2024-04-01 10:28 | PC.PHA ---
Vancomycin consult note: Indication for vancomycin: [LE CELLULITIS, SEVERE] Age: [28] Height: [185 CM] Weight: [185 KG] Most recent SCr: [1.5] Estimated CrCL: [115 ml/min, using adjusted BW] Recommended dose and frequency: [1500 mg IV q 12 hours over 90 minutes] to obtain an estimated AUC/TRAVIS of 400-600 mcg*hr/m Additional comment: [also on piperacillin/tazobactam]
--- NOTE | 2024-04-01 10:35 | CRLHL7_ITS ---
For Patients: As a result of the Century Cures Act, medical imaging exams and procedure reports are released immediately into your electronic medical record. You may view this report before your referring provider. If you have questions, please contact your health care provider. INDICATION: Abnormal LFTs. TECHNIQUE: Ultrasound abdomen limited. Sonographic images of the right upper quadrant were obtained using munguia-scale and color Doppler images. COMPARISON: None. FINDINGS: Liver: Heterogeneous/echogenic hepatic parenchyma. No suspicious masses. No intrahepatic biliary dilatation. Gallbladder: No stones or sludge. Normal wall thickness. No pericholecystic fluid. Common bile duct: Obscured. Pancreas: Obscured. Right kidney: Normal in size. Normal echotexture and cortex. No suspicious masses, stones, or hydronephrosis. Vasculature: Proximal abdominal aorta is unremarkable. IMPRESSION: Heterogeneous/echogenic hepatic parenchyma suggestive of chronic hepatocellular disease, including hepatic steatosis. No cholelithiasis or cholecystitis. Common bile duct is obscured. No intrahepatic ductal dilation. Dictated by Jose Mitchell MD @ 04/01/2024 12:25:59 PM (Electronically Signed)
[2024-04-01] MEDS: 0.9 % SODIUM CHLORIDE 1000 ml 1,000 ML 125 ML IV (11:17)
[2024-04-01] MEDS: ACETAMINOPHEN 325 MG TABLET 650 MG PO (11:25)
[2024-04-01] MEDS: IBUPROFEN 600 MG TABLET PO (11:52)
[2024-04-01 12:41] LABS: Appearance Urine Slightly Cloudy (Clear); Bilirubin Urine Negative (Negative); Blood Urine Trace-intact (Negative); Color Urine Yellow (Yellow); Glucose Urine Negative (Negative); Ketones Urine Negative (Negative); Leukocyte Esterase Urine Negative (Negative); Nitrite Urine Negative (Negative); Protein Urine 1+ (Negative); Specific Gravity Urine 1.025 (1.000-1.030); Urobilinogen Urine 0.2 (0.2-1.0)
[2024-04-01 12:57] LABS: Bacteria Urine Few; RBC Urine 0-2 (0-2); Squamous Epithelial Cell Urine Moderate (None-Few); WBC Urine 0-2 (0-5)
--- NOTE | 2024-04-01 18:22 | PC.NURSE ---
End of Shift: Patient pleasant and cooperative. Patient vitally stable, lungs clear, BS WNL, IV running NS at 125. Patient denies pain and is independent in room. Patient left leg is swollen, non pitting, warm and reddened. Two marsha bandages are applied to left leg and 1 marsha bandage applied to right leg for edema. Patient urinating, has loose stools, and tolerating regular diet. Patient was afebrile x1, tylenol and ibuprofen given, then fever resolved. Patient was also tachycardic and tachypneic(see vitals) earlier in the day and both are now WNL. Tele=NSR.
[2024-04-01] MEDS: ENOXAPARIN 30 MG/0.3ML INJ SUBCUT (21:34)
[2024-04-02] VITALS (8 sets, daily range): BP systolic 129–154; BP diastolic 80–92; PULSE 79–96; RESP 16–26; TEMP 36.7–37.4; O2SAT 93–97
[2024-04-02] MEDS: 0.9 % SODIUM CHLORIDE 1000 ml 1,000 ML 125 ML IV ×2 (00:14→10:35)
[2024-04-02] MEDS: PIPERACILLIN/TAZOBACTAM 3.375 GM in 0.9 % SODIUM CHLORIDE Mini-bag 100 ML IVPB ×4 (01:33→18:29)
[2024-04-02 07:23] LABS: Hemoglobin* 12.3 gm/dL (13.5-17.5); Mean Corpuscular HGB Conc 33 gm/dL (32-36); Mean Corpuscular Hemoglobin 28 pg (26-34); Mean Corpuscular Volume 83 fL (80-100); Platelet Count* 132 K/uL (140-440); Red Blood Count 4.47 m/uL (4.30-5.90)
[2024-04-02 07:24] LABS: Slide Review Reflex No
[2024-04-02 07:44] LABS: Albumin* 3.7 g/dL (3.3-5.0); Chloride* 105 mmol/L (96-114)
[2024-04-02 07:45] LABS: Potassium* 3.2 mmol/L (3.6-5.1); Sodium* 133 mmol/L (135-149)
[2024-04-02 07:47] LABS: Alkaline Phosphatase* 56 U/L (40-150); Anion Gap 7 mEq/L (7-15); Aspartate Amino Transferase* 65 U/L (12-35); Bilirubin Total* 1.6 mg/dL (0.1-1.5); Carbon Dioxide* 21 mmol/L (20-32); Creatinine* 0.9 mg/dL (0.5-1.5); Est. Creatinine Clearance* 139.33; Estimated Glomerular Filt Rate 120 ml/min; Total Protein* 7.2 g/dL (6.0-8.3)
[2024-04-02 07:48] LABS: Alanine Aminotransferase* 101 U/L (4-50); Blood Urea Nitrogen* 9 mg/dL (5-24); Calcium* 7.6 mg/dL (8.4-10.6); Glucose* 114 mg/dL (60-115)
--- NOTE | 2024-04-02 08:01 | PC.NURSE ---
Pt alert and oriented x3.Denies pain, chest pain, SOB, and N/V. Pt's redness on left calf and thigh did not exceed outline. Pt slept intermittently throughout night. Pt is up ad sukhi in room, voiding and continues to have loose bm's.
[2024-04-02 08:02] LABS: Procalcitonin* 0.94 ng/mL (<0.50)
[2024-04-02 08:15] LABS: Erythrocyte SedimentationRate* 54 mm/hr (2-15)
[2024-04-02] MEDS: POTASSIUM CHLORIDE 10 MEQ CAPSULE ER 40 MEQ PO ×3 (08:35→18:27)
--- NOTE | 2024-04-02 13:24 | P.IMPN_ITS ---
Progress Note: A&P Assessment and plan (1) Sepsis: Problem details: Resolved. Will discontinue telemetry and maintenance IVF Suspected left lower extremity cellulitis (no open wounds to culture) Max temp 102.6? thus far, tachycardia, tachypnea. No hypoxia WBC 16.57 with left shift - resolved, procal 1.61 - down trending, lactate 1.3, elevated sed rate, CRP BC x2 NGTD, UC negative, MRSA negative Continue vancomycin and Zosyn as initiated in the ED Tylenol or ibuprofen as needed for fever (elevated LFTs, creatinine up from baseline - monitor) He has had a total of 4 L NS bolus followed by maintenance fluids Telemetry, vitals Could consider CT chest/abd/pelvis if no improvement in vitals following sepsis management, rule out PE, infectious process Status: Resolved (2) Cellulitis of left leg: Problem details: Continue vancomycin and Zosyn Lower extremity compression wraps, elevate Status: Acute (3) Lymphedema: Problem details: Acute on chronic recurrent per patient. Appears to have chronic skin/rash changes Lower extremity compression wraps Status: Acute (4) Primary hypertension: Problem details: No previous diagnosis of this. Blood pressure elevated secondary to sepsis. Will consider starting antihypertensive prior to discharge Status: Acute (5) Hypokalemia: Problem details: Potassium 3.3, supplement with oral doses, monitor. Will give additional dose today 04/02 Sodium is 133 Status: Acute (6) Abnormal LFTs: Problem details: Likely chronic, acutely worsened in setting of sepsis Total bili 3.0, AST 85, ALT 116. Previous Bilirubin 1.5, ALT 67, GFR 88 as of September 2022 - down trending 04/02, bilirubin 1.6 (baseline) Receiving tylenol prn fever Monitor Status: Acute (7) Hepatic steatosis: Problem details: Likely chronic Ultrasound of abdomen shows heterogeneous/echogenic hepatic parenchyma suggestive of chronic hepatocellular disease, including hepatic steatosis Elevated LFTs as noted above Outpatient follow-up with PCP, GI Status: Acute (8) Morbid obesity: Problem details: BMI 53.7 Status: Acute (9) Kidney disease: Problem details: [employer] 1.5, previously 1-1.2 Receiving ibuprofen prn for fever, IV abx Improved to 0.9 continue to monitor Status: Acute Plan Continue IV antibiotics, monitoring for clinical improvement - only slight recedence of erythema thus far, plan to transition to oral when appropriate for discharge Time Spent With Patient Total time spent: Total time spent caring for the patient today was 45 minutes. This includes time spent for the visit reviewing the chart, time spent during the visit, time spent after the visit and documentation and planning in coordination of care. Subjective Date Seen: 04/02/24 Interval history: Patient reports feeling much better today. Looks brighter. Vitals have normalized. Has remained afebrile overnight. Leukocytosis resolves, procalcitonin trending down. Denies headache or dizziness. Denies chest pain or shortness of breath. Tolerating orals without nausea or vomiting. Slight recedence of erythema from outline on skin thus far. Exam Narrative: Exam Narrative: PHYSICAL EXAM General: Pleasant, conversant, NAD Cardiovascular: RRR Pulmonary: CTA bilaterally without rhonchi, rales, expiratory wheezes. No dyspnea on room air Abdominal: Soft, nondistended, NTTP, no guarding Neurological: Alert, answering questions appropriately, cranial nerves intact, no focal findings Extremities: LLE with erythema, outlined, to thigh, slightly receding. Warm to touch. Edematous changes of lower leg. Scaly. No open wounds. RLE thick but otherwise without acute findings. Skin: Warm, dry. Const: Vital Signs, click to edit/add: Vital Signs - 24 hr 04/01/24 05:21 04/01/24 07:37 04/01/24 08:25 Temperature 101.4 F H 100.1 F H 101.3 F H Pulse Rate Pulse Rate [Pulse Oximeter] 132 H 120 H 125 H Respiratory Rate 18 18 32 H Blood Pressure [Le ft Arm] 132/82 Blood Pressure [Ri ght Upper Arm] 137/62 141/72 H Pulse Oximetry 96 95 93 Oxygen Delivery Me thod Room Air Room Air Room Air 04/01/24 08:36 04/01/24 08:38 04/01/24 09:57 Temperature 101.3 F H Pulse Rate Pulse Rate [Pulse Oximeter] Respiratory Rate 32 H 30 H Blood Pressure [Le ft Arm] Blood Pressure [Ri ght Upper Arm] Pulse Oximetry 93 93 Oxygen Delivery Me thod Room Air Room Air 04/01/24 10:24 04/01/24 11:20 04/01/24 11:25 Temperature 102.6 F H 102.6 F H Pulse Rate 99 Pulse Rate [Pulse Oximeter] 109 H Respiratory Rate 32 H Blood Pressure [Le ft Arm] 133/77 Blood Pressure [Ri ght Upper Arm] Pulse Oximetry 98 Oxygen Delivery Me thod Room Air 04/01/24 11:52 04/01/24 12:55 04/01/24 12:55 Temperature 102.6 F H 100.9 F H 100.9 F H Pulse Rate Pulse Rate [Pulse Oximeter] Respiratory Rate Blood Pressure [Le ft Arm] Blood Pressure [Ri ght Upper Arm] Pulse Oximetry Oxygen Delivery Me thod 04/01/24 12:56 04/01/24 15:00 04/01/24 15:16 Temperature 100.9 F H 98.7 F Pulse Rate Pulse Rate [Pulse Oximeter] 90 90 Respiratory Rate 24 24 Blood Pressure [Le ft Arm] 146/92 H Blood Pressure [Ri ght Upper Arm] Pulse Oximetry 96 Oxygen Delivery Me thod Room Air Labs Labs: Laboratory Results - last 24 hr 04/01/24 04/01/24 06:00 12:30 WBC 16.57 H RBC 5.04 Hgb 14.1 Hct 41.7 MCV 83 MCH 28 MCHC 34 RDW Coeff of [place] 13.2 Plt Count 181 Neut % (Auto) 85.7 H Lymph % (Auto) 8.3 L [place] % (Auto) 4.1 Eos % (Auto) 0.0 Baso % (Auto) 0.1 Neut # (Auto) 14.20 H Lymph # (Auto) 1.40 [place] # (Auto) 0.70 Eos # (Auto) 0.00 Baso # (Auto) 0.00 Abs Immat Gran (auto) 0.30 Imm/Tot Granulo (auto) 1.8 ESR 29 H D-Dimer Quant (PE/DVT) 3.98 H Sodium 133 L Potassium 3.3 L Chloride 98 Carbon Dioxide 26 Anion Gap 9 BUN 16 Creatinine 1.5 Estimated Creat Clear 83.60 Estimated GFR 65 Glucose 115 Lactate 1.3 Calcium 8.0 L Total Bilirubin 3.0 H AST 85 H ALT 116 H Alkaline Phosphatase 57 C-Reactive Protein 23.5 H Total Protein 7.8 Albumin 4.3 Procalcitonin 1.61 H Urine Color Yellow Urine Appearance Slightly Cloudy A Urine pH 6.0 Ur Specific [place] 1.025 Urine Protein 1+ A Urine Glucose (UA) Negative Urine Ketones Negative Urine Blood Trace-intact A Urine Nitrite Negative Urine Bilirubin Negative Urine Urobilinogen 0.2 Ur Leukocyte Esterase Negative Urine RBC 0-2 Urine WBC 0-2 Ur Squamous Epith Cells Moderate A Urine Bacteria Few A
--- NOTE | 2024-04-02 18:04 | PC.NURSE ---
End of Shift: Patient pleasant and cooperative. Patient vitally stable, lungs clear, BS WNL, IV SL. Patient denies pain and independent in room. Patient tolerating regular diet, urinating, and with loose stools. Kevin bandages applied to LE. Left leg/thigh continues to be swollen, warm, and reddened, slightly improving but not getting worse.
[2024-04-02] MEDS: ENOXAPARIN 30 MG/0.3ML INJ SUBCUT (20:41)
[2024-04-02] MEDS: SODIUM CHLORIDE 0.9 % (FLUSH) 10 ML SYRINGE 5 ML IVF (20:41)
[2024-04-03] MEDS: PIPERACILLIN/TAZOBACTAM 3.375 GM in 0.9 % SODIUM CHLORIDE Mini-bag 100 ML IVPB ×2 (01:20→06:50)
[2024-04-03 01:25] VITALS: BP 149/87; PULSE 82; RESP 22; TEMP 37; O2SAT 99
--- NOTE | 2024-04-03 07:10 | PC.NURSE ---
Pt is alert and oriented x3. Afebrile. Pt denies pain, chest pain, SOB, and N/V. Pt?s left calf and thigh redness has not exceeded outline continues to be pink/red and swollen. ARELY wraps off overnight. Pt is up ad sukhi, voiding and tolerating regular diet. ?
[2024-04-03 08:18] VITALS: BP 152/102; PULSE 84; RESP 28; TEMP 37.1; O2SAT 94
[2024-04-03 08:37] LABS: Alanine Aminotransferase* 88 U/L (4-50); Albumin* 3.4 g/dL (3.3-5.0); Anion Gap 8 mEq/L (7-15); Aspartate Amino Transferase* 58 U/L (12-35); Bilirubin Total* 0.9 mg/dL (0.1-1.5); Blood Urea Nitrogen* 11 mg/dL (5-24); Calcium* 8.2 mg/dL (8.4-10.6); Carbon Dioxide* 22 mmol/L (20-32); Chloride* 109 mmol/L (96-114); Creatinine* 0.8 mg/dL (0.5-1.5); Est. Creatinine Clearance* 156.75; Estimated Glomerular Filt Rate 124 ml/min; Glucose* 94 mg/dL (60-115); Potassium* 3.7 mmol/L (3.6-5.1); Sodium* 139 mmol/L (135-149); Total Protein* 6.7 g/dL (6.0-8.3)
[2024-04-03 08:38] LABS: Alkaline Phosphatase* 53 U/L (40-150)
[2024-04-03 08:59] LABS: Hematocrit 34.4 % (37.0-53.0); Hemoglobin* 11.4 gm/dL (13.5-17.5); Mean Corpuscular HGB Conc 33 gm/dL (32-36); Mean Corpuscular Hemoglobin 28 pg (26-34); Mean Corpuscular Volume 84 fL (80-100); Platelet Count* 133 K/uL (140-440); Red Blood Count 4.08 m/uL (4.30-5.90)
[2024-04-03 09:00] LABS: Slide Review Reflex No
[2024-04-03 11:03] VITALS: BP 151/83; PULSE 82; RESP 24; TEMP 37.2; O2SAT 96
--- NOTE | 2024-04-03 13:20 | PC.NURSE ---
Discharge: Patient pleasant and cooperative. Patient vitally stable, lungs clear, BS WNL, IV removed, catheter intact. Patient denies pain and independent in room. Left leg/thigh, swollen-nonpitting and red but improved compared to yesterday. Kevin bandages applied to left leg. Patient tolerating regular diet, urinating, and with loose stool. Patient signed belongings sheet and discharge form with no further questions. Patient left the floor, ambulating, to home at 1319.
--- NOTE | 2024-04-03 15:58 | P.DS_ITS ---
DS: Providers Provider Date Seen: 04/03/24 Date of admission: 04/01/24 09:09 Primary care physician: Not a Local Provider Admitting Clinician: Charmaine Storey MD Attending Physician on discharge: Donna Post [facility], PAAsaelC [place] [facility] Date of Discharge: 04/03/24 DS: Diagnosis Discharge Diagnosis (1) Sepsis: Status: Resolved Problem details: Resolved. Will discontinue telemetry and maintenance IVF Suspected left lower extremity cellulitis (no open wounds to culture) Max temp 102.6? thus far, tachycardia, tachypnea. No hypoxia WBC 16.57 with left shift - resolved, procal 1.61 - down trending, lactate 1.3, elevated sed rate, CRP BC x2 NGTD, UC negative, MRSA negative Continue vancomycin and Zosyn as initiated in the ED Tylenol or ibuprofen as needed for fever (elevated LFTs, creatinine up from baseline - monitor) He has had a total of 4 L NS bolus followed by maintenance fluids (2) Cellulitis of left leg: Status: Acute Problem details: Patient was continued on vancomycin and Zosyn as initiated in the ED during hospital course, transition to oral cephalexin at time of discharge. Prior to discharge, notable improvement in lower extremity erythema and edema. Patient noted improvement back to near baseline, with chronic skin discoloration and swelling changes. Encouraged to continue with lower extremity compression wraps, elevate. (3) Lymphedema: Status: Acute Problem details: Acute on chronic recurrent per patient. Appears to have chronic skin/rash changes. Lower extremity compression wraps were utilized. Recommend outpatient referral to lymphedema clinic which can be completed by his PCP. Patient in agreement. (4) Primary hypertension: Status: Acute Problem details: No previous diagnosis of this. Blood pressure elevated secondary to sepsis which was noted to improved. Recommend follow-up with PCP for further manag ement options including initiation of antihypertensive. (5) Hypokalemia: Status: Acute Problem details: Improved with oral supplements. (6) Abnormal LFTs: Status: Acute Problem details: Likely chronic, acutely worsened in setting of sepsis Total bili 3.0, AST 85, ALT 116. Previous Bilirubin 1.5, ALT 67, GFR 88 as of September 2022 - down trending 04/02, bilirubin 1.6 (baseline) Ultrasound showing suspicion for hepatic steatosis. Recommend outpatient follow-up with PCP and GI referral (7) Hepatic steatosis: Status: Acute Problem details: Likely chronic Ultrasound of abdomen shows heterogeneous/echogenic hepatic parenchyma suggestive of chronic hepatocellular disease, including hepatic steatosis Elevated LFTs as noted above Outpatient follow-up with PCP and GI referral. (8) Morbid obesity: Status: Acute Problem details: BMI 53.7 (9) Kidney disease: Status: Acute Problem details: [employer] 1.5, previously 1-1.2, improved to 0.8 on day of discharge. Recommend outpatient follow-up with PCP for ongoing monitoring. DS: Summary Hospital Course Hospital Course: 28 year old male was admitted to the medical floor for IV management acute on chronic recurrent left lower extremity cellulitis in setting of sepsis. Course of care and details as noted above. Sepsis resolved following aggressive IV hydration, antibiotic therapy. Patient was transition from IV antibiotics to oral antibiotics to complete therapy at time of discharge. Will need close outpatient follow-up for resolution in addition recommendations for referral to lymphedema clinic and GI. Remainder of chronic medical comorbidities were monitored and managed with home medications. Status at Discharge Functional status at discharge: independent ambulation Overall status at discharge: patient is back to baseline Time Spent with Patient Time attestation: Total time spent providing and/or coordinating discharge services: Time spent: Greater than 30 minutes Exam Narrative: Exam Narrative: PHYSICAL EXAM General: Pleasant, conversant, NAD Cardiovascular: RRR Pulmonary: No dyspnea Neurological: Alert, answering questions appropriately Skin: Warm, dry. Const: Vital Signs, click to edit/add: Vital Signs - 24 hr 04/02/24 20:42 04/02/24 22:48 04/03/24 01:25 Temperature 99.1 F 98.0 F 98.6 F Pulse Rate [Pulse Oximeter] 82 79 82 Respiratory Rate 16 16 22 Blood Pressure [Le ft Arm] 134/85 138/87 149/87 H Pulse Oximetry 95 94 99 Oxygen Delivery Me thod Room Air Room Air Room Air 04/03/24 08:18 04/03/24 08:18 04/03/24 11:03 Temperature 98.7 F 98.9 F Pulse Rate [Pulse Oximeter] 84 84 82 Respiratory Rate 28 H 28 H 24 Blood Pressure [Le ft Arm] 152/102 H 151/83 H Pulse Oximetry 94 96 Oxygen Delivery Me thod Room Air Room Air DS: Data Data Completed and Pending Labs on day of discharge: Labs from last 24 hours 04/03/24 07:03 WBC 6.20 RBC 4.08 L Hgb 11.4 L Hct 34.4 L MCV 84 MCH 28 MCHC 33 Plt Count 133 L Sodium 139 Potassium 3.7 Chloride 109 Carbon Dioxide 22 Anion Gap 8 BUN 11 Creatinine 0.8 Estimated Creat Clear 156.75 Estimated GFR 124 Glucose 94 Calcium 8.2 L Total Bilirubin 0.9 AST 58 H ALT 88 H Alkaline Phosphatase 53 Total Protein 6.7 Albumin 3.4 Preliminary micro results at discharge 04/01/24 06:10 Blood Culture - Preliminary Blood NO GROWTH AFTER 48 HOURS 04/01/24 06:00 Blood Culture - Preliminary Blood NO GROWTH AFTER 48 HOURS Imaging Venous US: Attestation: I have reviewed the pertinent imaging results. Radiologist's impression: No evidence of deep venous thrombosis left lower extremity US - abdomen: Attestation: I have reviewed the pertinent imaging results. Radiologist's impression: Liver: Heterogeneous/echogenic hepatic parenchyma. No suspicious masses. No intrahepatic biliary dilatation. Gallbladder: No stones or sludge. Normal wall thickness. No pericholecystic fluid. Common bile duct: Obscured. Pancreas: Obscured. Right kidney: Normal in size. Normal echotexture and cortex. No suspicious masses, stones, or hydronephrosis. Vasculature: Proximal abdominal aorta is unremarkable. IMPRESSION: Heterogeneous/echogenic hepatic parenchyma suggestive of chronic hepatocellular disease, including hepatic steatosis. No cholelithiasis or cholecystitis. Common bile duct is obscured. No intrahepatic ductal dilation. Discharge Plan Discharge Disposition: Home, Self-Care Date of Admission: 04/01/24 09:09 Attending Provider on Discharge: Donna Post Primary Care Provider: Provider,Not a Local Condition: Improved Anticipated Discharge Date/Time: 04/03/24 11:49 Discharge Medications: New cephalexin 500 mg capsule 500 mg PO QID Qty: 40 0RF Discharge Orders: Discharge Order (Routine); Ordered 04/03/24 Ordered By: Donna Post Patient Education: Cephalexin (By mouth), Cellulitis (GEN), Hypertension (GEN), Lymphedema (GEN) Activity Level: No Restrictions Discharge Diet: Regular Follow Up Appointments: Damaso Garcia MD [Staff Physician] - 04/08/24 10:45 am ([facility] for follow[facility], Cellulitis, recurrent. Hypertension. Elevated LFTs and hepatic steatosis. Recommend referral to lymphedema clinic) Provider,Not a Local [Primary Care Provider] - (post hospital follow up 5-7 days. Cellulitis, recurrent. Hypertension. Elevated LFTs and hepatic steatosis. Recommend referral to lymphedema clinic) Forms: Work/School Release, [facility] Info Instructions
== END 2024-04-03 13:19 | disposition home or self-care (01) | DRG 720 ==
LOC: ED 05:38 → MEDSURG 08:25
PROVIDERS: Admitting Provider Physician Assistant; Emergency Provider Internal Medicine; Visit Provider Family Medicine
DX: A41.9 Sepsis, unspecified organism (principal); L03.116 Cellulitis of left lower limb; I12.9 Hypertensive chronic kidney disease with stage 1 through stage 4 chronic kidney disease, or unspecified chronic kidney disease; N18.1 Chronic kidney disease, stage 1; N17.9 Acute kidney failure, unspecified; E66.01 Morbid (severe) obesity due to excess calories; I89.0 Lymphedema, not elsewhere classified; Z68.43 Body mass index [BMI] 50.0-59.9, adult; E87.6 Hypokalemia; L25.9 Unspecified contact dermatitis, unspecified cause; K76.0 Fatty (change of) liver, not elsewhere classified; R79.89 Other specified abnormal findings of blood chemistry
CPT/HCPCS: 36415; 76705; 80053; 81001; 81003; 83605; 84145; 85025; 85027; 85379; 85651; 86140; 87040; 87081; 87086; 93971; 99283; A9270; J1650; J2543; J3370; J7030